=== PATIENT | female | born 1945 | race Caucasian/White ===

== ENCOUNTER 2018-02-11 08:59 | Day surgery (SDC) | payer MEDICARE, OTHER ==
[2018-02-11] VITALS (17 sets, daily range): BP systolic 120–170; BP diastolic 52–91
[~2018-02-11] VITALS: Ht 167.6 cm; Wt 54.6 kg
[~2018-02-11 08:59] MED LIST: BIMA2.5D4 EACHEYE; CALC-642 PO; CHOL400T57 PO; CYAN100082 PO; LEVO100T46 PO; LOSA1TAB41 PO; MAGN400C PO; MULT-1074 PO; OMEP-84 PO; SUMA25TA35 PO; SUMA50TA PO; THI100T PO; [UNRECOGNIZED DRUG - CODE] OP; [UNRECOGNIZED DRUG - CODE] OP
[2018-02-11] MEDS ORDERED: normal saline 1000ml 1,000 ML IV SCH (09:25)
[2018-02-11] MEDS ORDERED: CETI-102 PO (09:46)
[2018-02-11] MEDS ORDERED: HYDR-569 PO (09:46)
[2018-02-11] MEDS ORDERED: SYN0.088T PO (09:46)
[2018-02-11 10:02] LABS: BASOPHILS % (AUTO) 0.7 % (0-1); EOSINOPHILS # (AUTO) 0.1 X10'3 (0-0.9); EOSINOPHILS % (AUTO) 2.3 % (0-6); HEMATOCRIT 41.6 % (35.0-45.0); HEMOGLOBIN 14.4 g/dl (12.0-16.0); LYMPHOCYTES # (AUTO) 0.9 X10'3 (1.1-4.8); LYMPHOCYTES % (AUTO) 21.3 % (21-51); MEAN CORPUSCULAR HEMOGLOBIN 30.9 PG (27.0-31.0); MEAN CORPUSCULAR HGB CONC 34.7 % (33.0-36.5); MEAN PLATELET VOLUME 7.2 FL (7.4-10.4); MONOCYTES # (AUTO) 0.5 X10'3 (0-0.9); MONOCYTES % (AUTO) 13.4 % (2-12); NEUTROPHILS # (AUTO) 2.5 X10'3 (1.8-7.7); NEUTROPHILS % (AUTO) 62.3 % (42-75); PLATELET COUNT 321 X10'3 (140-440); RED BLOOD COUNT 4.67 X10'6 (4.20-5.60); RED CELL DISTRIBUTION WIDTH 12.8 % (11.5-14.5); WHITE BLOOD COUNT 4.1 X10'3 (4.5-11.0)
[2018-02-11] MEDS ORDERED: midazolam 2 mg/2 ml injection IV PRN (11:15)
[2018-02-11] MEDS ORDERED: fentaNYL/PF 50MCG/1 ML 2ML syringe IV PRN (11:15)
[2018-02-11] MEDS ORDERED: LIDOcaine 1%/PF (10mg/ml) 5ml vial SQ ONE (11:15)
[2018-02-11] MEDS ORDERED: fentaNYL/PF 50MCG/1 ML 2ML syringe ONE (11:26)
[2018-02-11] MEDS ORDERED: midazolam 2 mg/2 ml injection ONE (11:26)
== END 2018-02-11 15:15 | disposition home or self-care (01) ==
LOC: SSTAY O 08:59
PROVIDERS: ATTEND Radiology Diagnostic Radiology
DX: J84.10 Pulmonary fibrosis, unspecified (principal); J98.4 Other disorders of lung; I10 Essential (primary) hypertension; E03.9 Hypothyroidism, unspecified; G43.909 Migraine, unspecified, not intractable, without status migrainosus; K21.9 Gastro-esophageal reflux disease without esophagitis; Z95.0 Presence of cardiac pacemaker; Z85.3 Personal history of malignant neoplasm of breast; Z79.891 Long term (current) use of opiate analgesic; Z90.12 Acquired absence of left breast and nipple; Z90.89 Acquired absence of other organs; Z88.6 Allergy status to analgesic agent; Z88.8 Allergy status to other drugs, medicaments and biological substances; Z98.890 Other specified postprocedural states; Z79.899 Other long term (current) drug therapy
CPT/HCPCS: 32405; 36415; 71045; 77012; 85025; 99152; 99153; J2250; J3010; J7030

== ENCOUNTER 2018-02-16 12:30 | Observation (INO) | payer MEDICARE, OTHER ==
[~2018-02-16] VITALS: Ht 167.6 cm; Wt 56.4 kg
[~2018-02-16 12:30] MED LIST changes: +CETI-102 PO; +HYDR-569 PO; -LEVO100T46 PO; -MAGN400C PO; -OMEP-84 PO; -SUMA50TA PO; +SYN0.088T PO
[2018-02-16] MEDS ORDERED: normal saline 1000ML IV soln IVB ONE (12:40)
[2018-02-16 13:08] LABS: BASOPHILS % (AUTO) 0.6 % (0-1); EOSINOPHILS # (AUTO) 0.1 X10'3 (0-0.9); EOSINOPHILS % (AUTO) 3.1 % (0-6); HEMATOCRIT 36.7 % (35.0-45.0); HEMOGLOBIN 12.6 g/dl (12.0-16.0); LYMPHOCYTES # (AUTO) 1.3 X10'3 (1.1-4.8); LYMPHOCYTES % (AUTO) 28.1 % (21-51); MEAN CORPUSCULAR HEMOGLOBIN 30.4 PG (27.0-31.0); MEAN CORPUSCULAR HGB CONC 34.3 % (33.0-36.5); MEAN CORPUSCULAR VOLUME 88.8 FL (78-98); MEAN PLATELET VOLUME 7.1 FL (7.4-10.4); MONOCYTES # (AUTO) 0.7 X10'3 (0-0.9); MONOCYTES % (AUTO) 15.8 % (2-12); NEUTROPHILS # (AUTO) 2.4 X10'3 (1.8-7.7); NEUTROPHILS % (AUTO) 52.4 % (42-75); PLATELET COUNT 319 X10'3 (140-440); RED BLOOD COUNT 4.14 X10'6 (4.20-5.60); RED CELL DISTRIBUTION WIDTH 13.3 % (11.5-14.5); WHITE BLOOD COUNT 4.6 X10'3 (4.5-11.0)
[2018-02-16 13:31] LABS: ALANINE AMINOTRANSFERASE 24 U/L (12-78); ALBUMIN 3.6 G/DL (3.4-5.0); ALBUMIN/GLOBULIN RATIO 1.2 (1.1-1.5); ALKALINE PHOSPHATASE 58 IU/L (46-116); ANION GAP 7 (8-16); ASPARTATE AMINO TRANSFERASE 17 U/L (10-37); BILIRUBIN,TOTAL 0.3 MG/DL (0.1-1.0); BLOOD UREA NITROGEN 20 MG/DL (7-18); BUN/CREATININE RATIO 25.3 (6.6-38.0); CALCIUM 9.1 MG/DL (8.5-10.1); CHLORIDE 101 MMOL/L (99-107); CREATININE 0.79 MG/DL (0.40-0.90); GLUCOSE 108 MG/DL (70-104); MAGNESIUM 2.2 MG/DL (1.5-2.4); POTASSIUM 4.1 MMOL/L (3.5-5.1); SODIUM 136 MMOL/L (135-145); TOTAL PROTEIN 6.7 G/DL (6.4-8.2); eGFR 72 ML/MIN
[2018-02-16] MEDS ORDERED: potassium Cl 20 mEq SR tablet PO PRN ×2 (16:00)
[2018-02-16] MEDS ORDERED: magnesium hydroxide 30ml (MOM) UD suspension PO PRN (16:00)
[2018-02-16] MEDS ORDERED: ondansetron/PF 4mg/2ml inj IV PRN (16:00)
[2018-02-16] MEDS ORDERED: mag hydrox/Alum hydrox/simeth 30ml oral suspension PO PRN (16:00)
[2018-02-16] MEDS ORDERED: magnesium 2GM in 50ml NS 50 ML IV PRN (16:00)
[2018-02-16] MEDS ORDERED: magnesium Cl slow-release 64mg tablet PO PRN (16:00)
[2018-02-16] MEDS ORDERED: potassium Cl 40MEQ/NS 500ml 500 ML IV PRN ×2 (16:00)
[2018-02-16] MEDS ORDERED: acetaminophen 325mg tablet PO PRN ×2 (16:00)
[2018-02-16] MEDS ORDERED: magnesium 4gm in 100ml NS 100 ML IV PRN (16:00)
[2018-02-16] MEDS: K and/or MAG REPLACEMENT MC SCH (17:13)
[2018-02-16] MEDS ORDERED: HYDROcodone/acetaminophen 5mg/325mg tablet PO PRN (18:10)
[2018-02-16] MEDS ORDERED: timolol 0.5% ophthalmic solution 5ml bottle EACHEYE SCH (20:00)
[2018-02-16] MEDS ORDERED: dorzolamide 2% ophthalmic drops 10ml EACHEYE SCH (20:00)
[2018-02-16] MEDS ORDERED: latanoprost 0.005% 2.5ml ophthalmic drops EACHEYE SCH (21:00)
[2018-02-16] MEDS ORDERED: temazepam 15mg capsule PO PRN (21:00)
[2018-02-16] MEDS: PILOCARPINE 4% EACHEYE SCH (21:30)
[2018-02-16] MEDS ORDERED: losartan 25mg tablet PO SCH (22:55)
[2018-02-16 23:48] VITALS: BP 133/67
[2018-02-17 03:00] VITALS: BP 119/41
[2018-02-17 06:00] VITALS: BP 132/45
[2018-02-17 06:04] LABS: HEMATOCRIT 36.7 % (35.0-45.0); HEMOGLOBIN 12.5 g/dl (12.0-16.0); MEAN CORPUSCULAR HEMOGLOBIN 30.6 PG (27.0-31.0); MEAN CORPUSCULAR HGB CONC 34.1 % (33.0-36.5); MEAN CORPUSCULAR VOLUME 89.6 FL (78-98); MEAN PLATELET VOLUME 7.3 FL (7.4-10.4); PLATELET COUNT 288 X10'3 (140-440); RED BLOOD COUNT 4.09 X10'6 (4.20-5.60); RED CELL DISTRIBUTION WIDTH 13.2 % (11.5-14.5); WHITE BLOOD COUNT 5.4 X10'3 (4.5-11.0)
[2018-02-17 06:32] LABS: ALBUMIN 3.4 G/DL (3.4-5.0); ANION GAP 9 (8-16); BLOOD UREA NITROGEN 17 MG/DL (7-18); BUN/CREATININE RATIO 23.6 (6.6-38.0); CHLORIDE 106 MMOL/L (99-107); CREATININE 0.72 MG/DL (0.40-0.90); GLUCOSE 100 MG/DL (70-104); MAGNESIUM 2.2 MG/DL (1.5-2.4); POTASSIUM 4.1 MMOL/L (3.5-5.1); SODIUM 140 MMOL/L (135-145); TOTAL CARBON DIOXIDE 25.5 MMOL/L (24-32); eGFR 80 ML/MIN
[2018-02-17] MEDS ORDERED: pneumococcal 23-VAL P-sac vacc 25 mcg/0.5ml vial IMVAC ONE (06:45)
[2018-02-17] MEDS: PILOCARPINE 4% EACHEYE SCH ×2 (07:56→13:50)
[2018-02-17] MEDS: K and/or MAG REPLACEMENT MC SCH (07:56)
[2018-02-17] MEDS ORDERED: HYDROCHLOROTHIAZIDE PO SCH (08:00)
[2018-02-17] MEDS ORDERED: enoxaparin 40mg/0.4ml syringe SQ SCH (08:00)
[2018-02-17] MEDS ORDERED: levoTHYROXINE 88mcg tablet PO SCH (08:00)
[2018-02-17] MEDS ORDERED: losartan 25mg tablet PO SCH ×2 (08:00→21:00)
[2018-02-17] MEDS ORDERED: cetirizine 10mg tablet PO SCH (08:00)
[2018-02-17] MEDS ORDERED: LOSARTAN PO SCH (08:00)
[2018-02-17] MEDS ORDERED: [UNRECOGNIZED DRUG - OTHER] PO SCH (08:00)
[2018-02-17 11:00] VITALS: BP 136/39
[2018-02-17 15:00] VITALS: BP 129/45
== END 2018-02-17 16:35 | disposition home or self-care (01) ==
LOC: ER 12:31 → ED HOLD 15:59 → PCU 3S 23:39
PROVIDERS: ADMIT Family Medicine; ATTEND Family Medicine
DX: R00.1 Bradycardia, unspecified (principal); E78.5 Hyperlipidemia, unspecified; I10 Essential (primary) hypertension; E03.9 Hypothyroidism, unspecified; R73.03 Prediabetes; H40.9 Unspecified glaucoma; H26.9 Unspecified cataract; R55 Syncope and collapse; M54.5 Low back pain; G89.29 Other chronic pain; Z95.0 Presence of cardiac pacemaker; Z90.49 Acquired absence of other specified parts of digestive tract; Z86.74 Personal history of sudden cardiac arrest; Z85.3 Personal history of malignant neoplasm of breast
CPT/HCPCS: 36415; 71045; 80048; 80053; 83735; 83880; 84484; 85025; 85027; 87070; 93005; 93306; 99285; G0378; J7030; 90732; J1650; J3480

== ENCOUNTER 2018-04-03 05:34 | Day surgery (SDC) | payer MEDICARE, OTHER ==
[2018-04-01 11:22] LABS: BASOPHILS % (AUTO) 0.8 % (0-1); EOSINOPHILS # (AUTO) 0.2 X10'3 (0-0.9); EOSINOPHILS % (AUTO) 4.7 % (0-6); LYMPHOCYTES # (AUTO) 1.2 X10'3 (1.1-4.8); LYMPHOCYTES % (AUTO) 28.4 % (21-51); MEAN CORPUSCULAR HEMOGLOBIN 30.2 PG (27.0-31.0); MEAN CORPUSCULAR HGB CONC 33.7 % (33.0-36.5); MEAN CORPUSCULAR VOLUME 89.6 FL (78-98); MEAN PLATELET VOLUME 7.6 FL (7.4-10.4); MONOCYTES # (AUTO) 0.6 X10'3 (0-0.9); MONOCYTES % (AUTO) 14.6 % (2-12); NEUTROPHILS # (AUTO) 2.2 X10'3 (1.8-7.7); NEUTROPHILS % (AUTO) 51.5 % (42-75); PRE OP HEMATOCRIT 38.8 % (35.0-45.0); PRE OP HEMOGLOBIN 13.1 g/dL (12.0-16.0); PRE OP PLATELET COUNT 306 X10'3 (140-440); RED BLOOD COUNT 4.33 X10'6 (4.20-5.60)
[2018-04-01 11:29] LABS: CLARITY,URINE Clear (Clear); COLOR,URINE Yellow (Yellow); GLUCOSE, URINE Negative (Neg); KETONES,URINE Negative (Neg); LEUKOCYTE ESTERASE ,URINE Negative (Neg); NITRITES, URINE Negative (Neg); OCCULT BLOOD,URINE Negative (Neg); PH,URINE 7.5 (4.8-8.0); PROTEIN,URINE Negative (Neg); UROBILINOGEN,URINE 0.2 E.U/dL (0.2-1.0)
[2018-04-01 11:36] LABS: UA COLLECTION TYPE CLN CATCH MIDSTREAM
[2018-04-01 11:38] LABS: ALBUMIN 3.7 G/DL (3.4-5.0); ALBUMIN/GLOBULIN RATIO 1.1 (1.1-1.5); ALKALINE PHOSPHATASE 72 IU/L (46-116); BLOOD UREA NITROGEN 20 MG/DL (7-18); CALCIUM 8.9 MG/DL (8.5-10.1); CHLORIDE 99 MMOL/L (99-107); PRE OP ALT 31 U/L (30-65); PRE OP ANION GAP 9 (8-16); PRE OP AST 25 U/L (10-37); PRE OP BILIRUB, TOTAL 0.4 MG/DL (0.0-1.0); PRE OP GLUCOSE 92 MG/DL (70-104); PRE OP POTASSIUM 4.1 MMOL/L (3.4-5.1); PRE OP SODIUM 137 MMOL/L (135-145); TOTAL CARBON DIOXIDE 28.6 MMOL/L (24-32); TOTAL PROTEIN 7.2 G/DL (6.4-8.2); eGFR 70 ML/MIN
[2018-04-03] VITALS (13 sets, daily range): BP systolic 127–158; BP diastolic 53–91
[~2018-04-03] VITALS: Ht 167.6 cm; Wt 54.2 kg
[~2018-04-03 05:34] MED LIST changes: +ASCO-134 PO; -CALC-642 PO; +CHOL100012 PO; -CHOL400T57 PO; -LOSA1TAB41 PO; +MAGN400T29 PO; +NORT25CA5 PO; +PIL2OS EACHEYE; -THI100T PO; +TIMO5DRO4 EACHEYE; +VITAMIN B2 PO; -[UNRECOGNIZED DRUG - CODE] OP; -[UNRECOGNIZED DRUG - CODE] OP; +ceFAZolin 2gm in dextrose, iso 100 ML IV ONE; +famotidine 20mg tablet PO ONE; +ringers solution, lacted 1,000 ML IV SCH
[2018-04-03] MEDS ORDERED: LIDOcaine 1% (10mg/ml) 2ml vial ONE ×2 (06:30→06:38)
[2018-04-03] MEDS ORDERED: ceFAZolin 1000mg inj ONE (06:39)
[2018-04-03] MEDS ORDERED: NETA2.5D EACHEYE (06:47)
[2018-04-03] MEDS ORDERED: proCHLORperazine 10 MG/2 ml inj IV PRN (07:25)
[2018-04-03] MEDS ORDERED: ringers solution, lacted 1,000 ML IV SCH (07:25)
[2018-04-03] MEDS ORDERED: ondansetron/PF 4mg/2ml inj IV PRN (07:25)
[2018-04-03] MEDS ORDERED: meperidine/PF 25mg/ml syringe IV PRN (07:25)
[2018-04-03] MEDS ORDERED: acetaminophen 1,000mg/100ml IV 100 ML IV PRN (07:25)
[2018-04-03] MEDS ORDERED: morphine 4 MG/ML inj SYRINge IV PRN (07:25)
[2018-04-03] MEDS ORDERED: midazolam 2 mg/2 ml injection ONE (07:42)
[2018-04-03] MEDS ORDERED: fentaNYL/PF 50MCG/1 ML 2ML syringe ONE (07:42)
[2018-04-03] MEDS ORDERED: ROPIVAcaine 0.5% (5mg/ml) 30ml vial ONE (08:02)
[2018-04-03] MEDS ORDERED: dexamethasone sod phosphate 4mg/ml inj. ONE (08:22)
[2018-04-03] MEDS ORDERED: rocuronium 10mg/ml inj IV ONE (08:22)
[2018-04-03] MEDS ORDERED: propofol inj 20 ML IV ONE (08:22)
[2018-04-03] MEDS ORDERED: ondansetron/PF 4mg/2ml inj ONE (08:22)
[2018-04-03] MEDS ORDERED: LIDOcaine 2% (20mg/ml) 5ml vial ONE (08:23)
[2018-04-03] MEDS ORDERED: ePHEDrine 50MG/ML INJ. ONE (08:23)
[2018-04-03] MEDS: meperidine/PF 25mg/ml syringe IV PRN ×2 (09:23→09:34)
[2018-04-03] MEDS: morphine 4 MG/ML inj SYRINge IV PRN ×2 (09:48→10:02)
== END 2018-04-03 10:54 | disposition home or self-care (01) ==
LOC: PAS 05:34
PROVIDERS: ATTEND Surgery
DX: C48.0 Malignant neoplasm of retroperitoneum (principal); E89.0 Postprocedural hypothyroidism; C50.912 Malignant neoplasm of unspecified site of left female breast; E78.5 Hyperlipidemia, unspecified; E11.9 Type 2 diabetes mellitus without complications; G43.909 Migraine, unspecified, not intractable, without status migrainosus; M54.5 Low back pain; D71 Functional disorders of polymorphonuclear neutrophils; Z79.899 Other long term (current) drug therapy; Z88.8 Allergy status to other drugs, medicaments and biological substances; Z90.49 Acquired absence of other specified parts of digestive tract; Z98.890 Other specified postprocedural states; Z98.42 Cataract extraction status, left eye; Z98.41 Cataract extraction status, right eye; Z72.89 Other problems related to lifestyle; Z91.048 Other nonmedicinal substance allergy status; Z95.0 Presence of cardiac pacemaker; Z92.3 Personal history of irradiation
CPT/HCPCS: 36415; 58662; 80053; 81003; 83036; 85025; 86885; 86900; 86901; 88184; 88185; J0131; J0690; J1100; J2001; J2175; J2250; J2270; J2405; J2704; J2795; J3010; J3490; J7120; A7000

== ENCOUNTER 2018-05-02 09:29 | Outpatient (CLI) | payer MEDICARE, OTHER ==
[2018-05-02] VITALS (17 sets, daily range): BP systolic 129–173; BP diastolic 63–86
[~2018-05-02 09:29] MED LIST changes: +NETA2.5D EACHEYE; -ceFAZolin 2gm in dextrose, iso 100 ML IV ONE; -famotidine 20mg tablet PO ONE; -ringers solution, lacted 1,000 ML IV SCH
== END 2018-05-02 23:59 | disposition home or self-care (01) ==
LOC: CARD DIAG 09:29
PROVIDERS: ATTEND Internal Medicine Interventional Cardiology
DX: R55 Syncope and collapse (principal); I10 Essential (primary) hypertension; E10.9 Type 1 diabetes mellitus without complications
CPT/HCPCS: 93660

== ENCOUNTER 2024-01-17 09:49 | Outpatient (CLI) | payer MEDICARE, BC ==
[~2024-01-17 09:49] MED LIST changes: -CETI-102 PO; +CETI-90 PO; +HYDR-4383 PO; -HYDR-569 PO; +TIMO5DRO15 EACHEYE; -TIMO5DRO4 EACHEYE
== END 2024-01-17 23:59 | disposition home or self-care (01) ==
LOC: VAS 09:49
PROVIDERS: ATTEND Nurse Practitioner
DX: M79.604 Pain in right leg (principal)
CPT/HCPCS: 93971